=== PATIENT | male | born 2000 | race Caucasian/White ===

== ENCOUNTER 2018-04-24 14:11 | Emergency (ER) | payer BC ==
[~2018-04-24 14:11] MED LIST: CEPH500T7 PO
--- NOTE | 2018-04-24 14:23 | ER Report ---
History and Physical Time Seen By MD: 14:22 HPI/ROS CHIEF COMPLAINT: Overdose suicidal attempt HISTORY OF PRESENT ILLNESS: 17-year-old male history of depressive disorder on Xanax decided to kill himself today started drinking alcohol overnight and then took 71 mg Xanax tablets and attempt to kill himself was found by his family brought here for evaluation patient since she's had suicidal thoughts for quite some time but this is his 1st attempt been treated for depression since age is 14 patient has no physical complaints at this time REVIEW OF SYSTEMS: Respiratory: No cough, no dyspnea. Cardiovascular: No chest pain, no palpitations. Gastrointestinal: No vomiting, no abdominal pain. Musculoskeletal: No back pain. Remainder of the 14 system rev: Yes Allergies: Coded Allergies: No Known Drug Allergies (Unverified , 04/24/18) Home Meds Discontinued Scripts Cephalexin 500 Mg Tab (KEFLEX 500 MG TAB) 500 Mg Tablet, 500 MG PO Q6H for 5 Days, #20 TAB Prov:KINA UREÑA [employer] 03/01/17 Reviewed Nurses Notes: Yes Old Medical Records Reviewed: Yes Hx Substance Use Disorder: No Hx Alcohol Use: No Constitutional Vital Sign - Last 24 Hours 04/24/18 14:17 Temp 98.2 Pulse 63 Resp 16 B/P (MAP) 120/63 Pulse Ox 98 O2 Delivery Room Air Physical Exam General Appearance: The patient is alert, has no immediate need for airway protection and no current signs of toxicity. Somewhat somnolent Eyes: Pupils equal and round no injection dilated 4-5 mm Respiratory: Chest is non tender, lungs are clear to auscultation. Cardiac: regular rate and rhythm [ ] Gastrointestinal: Abdomen is soft and non tender, no masses, bowel sounds normal. Musculoskeletal: Neck: Neck is supple and non tender. Extremities have full range of motion and are non tender. Skin: No rashes or lesions. [ ] DIFFERENTIAL DIAGNOSIS: After history and physical exam differential diagnosis was considered for benzodiazepine overdose alcohol intoxication suicidal ideation with attempt Medical Decision Making Data Points Result Diagram: 04/24/18 1417 04/24/18 1417 Laboratory Hematology Test 04/24/18 14:17 Red Blood Count 5.85 M/uL (4.00-5.60) Mean Corpuscular Volume 85.5 fL (80.0-96.0) Mean Corpuscular Hemoglobin 30.0 pg (26.0-33.0) Mean Corpuscular Hemoglobin Concent 35.1 g/dL (32.0-36.0) Red Cell Distribution Width 12.9 % (11.5-14.5) Mean Platelet Volume 8.8 fL (7.2-11.1) Neutrophils (%) (Auto) 61.5 % (39.4-72.5) Lymphocytes (%) (Auto) 28.8 % (17.6-49.6) Monocytes (%) (Auto) 7.9 % (4.1-12.4) Eosinophils (%) (Auto) 1.5 % (0.4-6.7) Basophils (%) (Auto) 0.3 % (0.3-1.4) Nucleated RBC Relative Count (auto) 0.1 /100WBC Neutrophils # (Auto) 5.7 K/uL (2.0-7.4) Lymphocytes # (Auto) 2.7 K/uL (1.3-3.6) Monocytes # (Auto) 0.7 K/uL (0.3-1.0) Eosinophils # (Auto) 0.1 K/uL (0.0-0.5) Basophils # (Auto) 0.0 K/uL (0.0-0.1) Nucleated RBC Absolute Count (auto) 0.01 K/uL Sodium Level 142 mmol/L (137-145) Potassium Level 3.6 mmol/L (3.5-5.0) Chloride Level 107 mmol/L (98-107) Carbon Dioxide Level 23 mmol/L (22-30) Blood Urea Nitrogen 13 mg/dl (9-21) Creatinine 1.00 mg/dl (0.66-1.25) Glomerular Filtration Rate Calc > 60.0 Random Glucose 90 mg/dl (75-110) Calcium Level 9.3 mg/dl (8.4-10.2) Magnesium Level 1.9 mg/dl (1.7-2.2) Total Bilirubin 1.4 mg/dl (0.2-1.3) Aspartate Amino Transf (AST/SGOT) 23 U/L (0-35) Alanine Aminotransferase (ALT/SGPT) 23 U/L (0-56) Alkaline Phosphatase 101 U/L (0-126) Total Protein 8.1 g/dl (6.3-8.2) Albumin 4.7 g/dl (3.5-5.0) Thyroid Stimulating Hormone (TSH) 1.11 uIU/ml (0.46-4.68) Salicylates Level < 10 mg/L Salicylate Last Dose Date unk Acetaminophen Level < 10 ug/ml Serum Alcohol < 10 mg/dl Chemistry Test 04/24/18 14:17 White Blood Count 9.2 k/uL (4.5-11.0) Red Blood Count 5.85 M/uL (4.00-5.60) Hemoglobin 17.6 g/dL (14.0-18.0) Hematocrit 50.0 % (42.0-52.0) Mean Corpuscular Volume 85.5 fL (80.0-96.0) Mean Corpuscular Hemoglobin 30.0 pg (26.0-33.0) Mean Corpuscular Hemoglobin Concent 35.1 g/dL (32.0-36.0) Red Cell Distribution Width 12.9 % (11.5-14.5) Platelet Count 305 K/uL (150-450) Mean Platelet Volume 8.8 fL (7.2-11.1) Neutrophils (%) (Auto) 61.5 % (39.4-72.5) Lymphocytes (%) (Auto) 28.8 % (17.6-49.6) Monocytes (%) (Auto) 7.9 % (4.1-12.4) Eosinophils (%) (Auto) 1.5 % (0.4-6.7) Basophils (%) (Auto) 0.3 % (0.3-1.4) Nucleated RBC Relative Count (auto) 0.1 /100WBC Neutrophils # (Auto) 5.7 K/uL (2.0-7.4) Lymphocytes # (Auto) 2.7 K/uL (1.3-3.6) Monocytes # (Auto) 0.7 K/uL (0.3-1.0) Eosinophils # (Auto) 0.1 K/uL (0.0-0.5) Basophils # (Auto) 0.0 K/uL (0.0-0.1) Nucleated RBC Absolute Count (auto) 0.01 K/uL Glomerular Filtration Rate Calc > 60.0 Calcium Level 9.3 mg/dl (8.4-10.2) Magnesium Level 1.9 mg/dl (1.7-2.2) Total Bilirubin 1.4 mg/dl (0.2-1.3) Aspartate Amino Transf (AST/SGOT) 23 U/L (0-35) Alanine Aminotransferase (ALT/SGPT) 23 U/L (0-56) Alkaline Phosphatase 101 U/L (0-126) Total Protein 8.1 g/dl (6.3-8.2) Albumin 4.7 g/dl (3.5-5.0) Thyroid Stimulating Hormone (TSH) 1.11 uIU/ml (0.46-4.68) Salicylates Level < 10 mg/L Salicylate Last Dose Date unk Acetaminophen Level < 10 ug/ml Serum Alcohol < 10 mg/dl Toxicology Test 04/24/18 14:17 Salicylates Level < 10 mg/L Salicylate Last Dose Date unk Acetaminophen Level < 10 ug/ml Serum Alcohol < 10 mg/dl ED Course/Re-evaluation ED Course ED clinical course 17-year-old male who attempted suicide by taking 71 mg Xanax tablets patient has been depressed since he is 14 he has admitted alcohol and cannabis patient arrival here physically is is unremarkable exam patient has a normal EKG will be admitted as a voluntary admission to [facility] for suicidal ideation and attempt Decision to Disposition Date: Apr 24, 2018 Decision to Disposition Time: 15:36 Depart Departure Latest Vital Signs Vital Signs Date Time Temp Pulse Resp B/P (MAP) Pulse Ox O2 Delivery O2 Flow Rate FiO2 04/24/18 14:17 98.2 63 16 120/63 98 Room Air Impression: Primary Impression: Suicide attempt Condition: Improved Disposition: XFER TO [facility] CLIFFORD MORALEZ MD Apr 24, 2018 14:23
[2018-04-24 14:30] LABS: PLATELET COUNT, AUTOMATED 305 K/uL (150-450)
--- NOTE | 2018-04-24 14:35 | EKG ---
FACILITY: [facility] - [place] PATIENT NAME: JOSÉ MIGUEL DOUGLASS : [id number] MR: [id number] V: [id number] EXAM DATE: ORDERING PHYSICIAN: CLIFFORD MORALEZ TECHNOLOGIST: ОЛЬГА Bernal Reason : Blood Pressure : / mmHG Vent. Rate : 072 BPM Atrial Rate : 072 BPM P-R Int : 152 ms QRS Dur : 098 ms QT Int : 370 ms P-R-T Axes : 010 078 056 degrees QTc Int : 405 ms Normal sinus rhythm Normal ECG No previous ECGs available Confirmed by GALLO ALMONTE ([id number]) on 04/24/2018 3:21:01 PM Referred By: Confirmed By:GALLO ALMONTE
[2018-04-24 15:30] VITALS: BP 103/83
[2018-04-24] MEDS ORDERED: NICOTINE 21 MG/24 HR PATCH TD ONE (16:20)
[2018-04-25] MEDS ORDERED: ALPR-429 PO (11:15)
[2018-04-25] MEDS ORDERED: ALPR-451 PO (11:16)
== END 2018-04-24 16:20 ==
LOC: ER 14:16
DX: T42.4X2A Poisoning by benzodiazepines, intentional self-harm, initial encounter (principal); R45.851 Suicidal ideations; F32.9 Major depressive disorder, single episode, unspecified
CPT/HCPCS: 80305; 80320; 80329; 81001; 82040; 82247; 82310; 82374; 82435; 82565; 82947; 83735; 84075; 84132; 84155; 84295; 84443; 84450; 84460; 84520; 85025; 93005; 99283

== ENCOUNTER 2018-04-24 15:37 | Inpatient (IN) | payer BC ==
[~2018-04-24] VITALS: Ht 175.3 cm; Wt 68.0 kg
[2018-04-24] MEDS ORDERED: NICOTINE CARTRIDGE 1 EA PO PRN (16:25)
[2018-04-24 16:49] VITALS: BP 118/52
[2018-04-24 22:08] VITALS: BP 100/60
[2018-04-25 06:03] VITALS: BP 105/59
[2018-04-25 08:20] VITALS: BP 112/59
[2018-04-25] MEDS: NICOTINE INH SYSTEM 10 MG/INH INH PRN ×2 (08:35→20:19)
[2018-04-25] MEDS ORDERED: ALPR-429 PO (11:15)
[2018-04-25] MEDS ORDERED: ALPR-451 PO (11:16)
--- NOTE | 2018-04-25 16:22 | HISTORY AND PHYSICAL ---
DATE OF ADMISSION: April 24, 2018 Patient was seen at approximately 1100 hours on the a.m. of April 25, 2018. PRESENTING PROBLEM/CHIEF COMPLAINT Recent suicide attempt. HISTORY OF PRESENT ILLNESS This is a 17-year-old male who came to the emergency room on a voluntary basis after patient reported consuming seven 1 mg Xanax tablets, which he is prescribed to use for panic attack by his current outpatient provider. The patient reports drinking alcohol along with this in what patient describes as a suicide attempt. Patient initially very cooperative in the ER, however, on arrival to the Behavioral Health Unit, patient started engaging in cursing at hospital staff members and destroying hospital furniture. The patient put in a room where he could be monitored more closely. Behavior subsided, patient slept through the night and the next day the patient was apologetic for his behaviors, no longer combative. Patient cooperative. He reports again taking the Xanax and some alcohol in a suicide attempt. Patient has no previous suicide attempts. 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 He has also recently moved into a trailer house and is living with his best friend. Patient reports his energy is pretty low at times and his concentration is down. Patient reports he continues to have interest in skateboarding and other outdoor endeavors. Patient reports his sleep is performance at times, but melatonin seems to help. Patient no longer stating he is suicidal and now states his mood is a 5-6/10. Patient admitting to using marijuana on a very heavy basis daily. Notably his cannabis screen is negative and a repeat urine drug screen on the unit was negative for cannabis as well. Both were positive for benzodiazepines, which the patient admitted to overdosing on. Patient denies any history of abigail. Patient states that when he smokes too much marijuana at times he does get paranoid, and patient showing a bump on his arm that when he looks at this when he is smoking marijuana, reports he thinks this means he will "." Patient reports he does have panic attacks in the past. They are less now in frequency than they used to be. Patient has tried other medications including Lexapro and BuSpar. Patient reports stopping them. Patient denies any history of PTSD. Patient admits to mild phobic-like thoughts about dying. Denying any other symptoms of concern. Patient noted to be engaging in self-harm behaviors in the form of cutting from [age]. He no longer does this. Patient reports getting a aleman from the pain at the time, but not that it was a suicide attempt. MENTAL HEALTH HISTORY Patient has never been on an inpatient psychiatric unit before. Patient does continue to see Eden Beltran from time to time, who is currently only prescribing low dose for Xanax for abort of panic attacks. Patient used to see counselor Krystin, however, is not any more. FAMILY PSYCHIATRIC HISTORY Patient reports his mother suffers from depression and anxiety. A paternal grandmother may have suffered from alcoholism , and his father is a recovered alcoholic. Grandfather may have suffered from depression on the father's side as well. No suicides in the family history. PAST MEDICAL HISTORY Patient reports no concerns and denies any allergies and not on any medications for medical illness. SOCIAL HISTORY Patient born here in [place], raised in [place]. Parents were at the time of his . He has one sister who is older. Patient is not a high school graduate, did not obtain a GED. Patient reports he dropped out of high school around his tanmay year, went back and tried to finish, dropped out again. Patient reports initially this was caused by a relationship problem at the time with his significant other. Patient has never been in the and never , has no children. Considered himself heterosexual and has no current significant other. He lives with his best friend in a trailer that they just moved into. Patient works in a [employer] business. He reports overall he likes this work, and he has no history of physical, emotional or sexual abuse while growing up. LEGAL HISTORY The patient has a legal history significant for diversion program in the past when caught with marijuana. SUBSTANCE ABUSE HISTORY Patient reports using cannabis up to 3-4 times a day. He is a one pack a day cigarette smoker. He uses some minimal alcohol. Denies any history of other substance abuse. PHYSICAL EXAMINATION GENERAL: Please see emergency room note. Notable for a 17-year-old male who is now cooperative on the unit, interacting well. VITAL SIGNS: At the time of admission, temperature 98.2, pulse 63, respiratory rate 16, blood pressure 120/63 and pulse oximetry 98 on room air. LABORATORY DATA CBC unremarkable. CMP notable for a total bilirubin slightly elevated at 1.4. TSH 1.11. Urinalysis notable for small urine blood and some urobilinogen, otherwise unremarkable. Toxicology screen positive for benzodiazepine, negative for other drugs of abuse with a nondetectable serum alcohol. Repeat drug screen was also negative for cannabis, but positive for benzodiazepine. MENTAL STATUS EXAMINATION GENERAL APPEARANCE, BEHAVIOR AND ATTITUDE: This is a cooperative 17-year-old male making good eye contact. No bizarre mannerisms or tics. No periods of tearfulness. SPEECH: Within normal limits, regular rate, rhythm, volume and tone. MOOD: Described as variable at times. AFFECT: Minimally constricted. Mood congruent overall. THOUGHT PROCESSES: Patient goal directed, logical. Willing to take any marijuana use very seriously at this time. No loose associations or flight of ideas. THOUGHT CONTENT: Free of auditory or visual hallucinations, ideas of reference, thought broadcastings, delusions, obsessions, compulsions. Patient admitting to some paranoid-like thoughts concerning thoughts of wanting to when he is smoking heavy amounts of marijuana. Patient admitting to suicidal thoughts with recent attempt. Denying homicidal ideation. SENSORIUM: Clear. COGNITION: Alert and oriented to person, place, time and situation. MEMORY: Immediate, recent and remote estimated intact. INTELLIGENCE: Average based on interview. INSIGHT AND JUDGMENT: Considered grossly intact in the absence of substance abuse. ASSESSMENT This is a now cooperative 17-year-old male. Patient trying to excuse his somewhat violent and abusive behaviors the night before as he was quote "still high on Xanax." Will focus on heavy use of marijuana as a potential cause of mood instability. Will continue to review any symptoms in the absence of marijuana use. Patient now cooperative and remains on a voluntary basis. Will consider medications as needed. DIAGNOSES PER DSM-V Cannabis use disorder severe. 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 PLAN 1. Admit to the unit. 2. Necessary precautions to be implemented. 3. Patient will participate in individual and group therapy. 4. Medications to be administered, titrated accordingly. 5. Collateral information to be obtained as necessary. 6. Estimated length of stay three to five days. MTDD
[2018-04-25 23:07] VITALS: BP 98/70
--- NOTE | 2018-04-26 11:30 | BHS Progress Note ---
[facility] - Subjective Progress Notes Subjective Patient is noted to be taking an active role in his treatment today. Patient states he does not want to start medications, but will focus on abstaining from substance use. Patient's mood is improved, and sleep and appetite good. No other concerns, will see about possible discharge tomorrow. Suicidal Ideation: None Homicidal Ideation: None [facility] - Objective Physical Exam Vital Signs Vital Signs Date Time Temp Pulse Resp B/P (MAP) Pulse Ox O2 Delivery O2 Flow Rate FiO2 04/25/18 23:07 98.6 55 98/70 (79) Room Air 04/25/18 08:20 99 04/25/18 06:03 15 Hematology Test 04/25/18 00:00 Urine Opiates Screen Negative Urine Barbiturates Screen Negative Ur Tricyclic Antidepressants Screen Negative Urine Phencyclidine Screen Negative Urine Amphetamines Screen Negative Urine Benzodiazepines Screen Positive Urine Cocaine Screen Negative Urine Cannabinoids Screen Negative Chemistry Test 04/25/18 00:00 Urine Opiates Screen Negative Urine Barbiturates Screen Negative Ur Tricyclic Antidepressants Screen Negative Urine Phencyclidine Screen Negative Urine Amphetamines Screen Negative Urine Benzodiazepines Screen Positive Urine Cocaine Screen Negative Urine Cannabinoids Screen Negative Toxicology Test 04/25/18 00:00 Urine Opiates Screen Negative Urine Barbiturates Screen Negative Ur Tricyclic Antidepressants Screen Negative Urine Phencyclidine Screen Negative Urine Amphetamines Screen Negative Urine Benzodiazepines Screen Positive Urine Cocaine Screen Negative Urine Cannabinoids Screen Negative Muscle Strength and Tone: WNL Gait and Station: Steady [facility] Medications Reviewed: Side Effects, Benefits of Medication, Risks Allergies Reviewed: Yes Mental Status Exam General Appearance: Casual, Well Groomed, Good Eye Contact (fair), Cooperative, Polite, Good Interaction; No Unkept, No Tearful, No Psychomotor Agitation, No Psychomotor Retardation, No Bizarre Mannerisms, No Tics Speech: Clear, Spontaneous, Normal Rate, Normal Rhythm, Normal Volume, Normal Tone; No Delayed, No Slurred, No Garbled, No Rambling, No Inappropriate Mood: Dysthmic/Depressed (improving) Affect: Calm, Neutral; No Tearful, No Anxious, No Agitated Thought Process: Organized, Logical, Goal Directed; No Loose Associations, No Flight of Ideas Thought Content: No Suicidal Ideation, No Homicidal Ideation, No Delusions, No Auditory Halllucinations, No Visual Hallucinations, No Thought Broadcasting, No Ideas of Reference, No Obsessions, No Compulsions Sensorium: Clear Cognition: Alert & Oriented-Person, Alert & Oriented-Place, Alert & Oriented- Time, Clzle-Okfgjqca-Sypvfcjtz Memory: Immediate, Recent, Remote Intelligence: Average Insight Judgment: Fair (improving) [facility] Assessment and Plan [id number] Encounter Date: Apr 26, 2018 [id number] Encounter Time: 09:30 [facility] Plan: Necessary Precautions, Individual/Group Therapy, Admin/Titrate Meds, Educate Patient Tobacco Medications: Started Multpiple Antipsychotics Used: No Problems: (1) Cannabis-induced disorder Optional Permanent Comment: of mood, vs persisting depressive disorder Last Edited By: Christine Hall on Apr 26, 2018 11:29 Status: Acute (2) Cannabis use disorder, severe, in controlled environment Status: Chronic Condition 1. continue treatment. 2. likely discharge tomorrow. CHRISTINE HALL MD Apr 26, 2018 11:29
[2018-04-26 13:00] VITALS: BP 112/50
[2018-04-26 19:35] VITALS: BP 116/62
[2018-04-27 06:15] VITALS: BP 107/61
[2018-04-27] MEDS ORDERED: NIC10R INH (09:25)
--- NOTE | 2018-04-27 10:51 | BHS Progress Note ---
[facility] - Subjective Progress Notes Subjective "I'm getting the sober mindset." Verbalizes desire to quit use of cannabis and substances Rating anger 0, depression and anxiety 2/10 Denies urge for self harm, suicidal or homicidal ideation Suicidal Ideation: None Homicidal Ideation: None [facility] - Objective Physical Exam Vital Signs Vital Signs Date Time Temp Pulse Resp B/P (MAP) Pulse Ox O2 Delivery O2 Flow Rate FiO2 04/27/18 06:15 97.1 59 107/61 (76) 95 Room Air 04/26/18 13:00 16 Muscle Strength and Tone: WNL Gait and Station: Steady [facility] Medications Reviewed: Side Effects, Benefits of Medication, Risks Allergies Reviewed: Yes Mental Status Exam General Appearance: Casual, Well Groomed, Good Eye Contact (fair), Cooperative, Polite, Good Interaction; No Unkept, No Tearful, No Psychomotor Agitation, No Psychomotor Retardation, No Bizarre Mannerisms, No Tics Speech: Clear, Spontaneous, Normal Rate, Normal Rhythm, Normal Volume, Normal Tone; No Delayed, No Slurred, No Garbled, No Rambling, No Inappropriate Mood: No Dysthmic/Depressed (improving); Euthymic Affect: Calm, Neutral; No Tearful, No Anxious, No Agitated Thought Process: Organized, Logical, Goal Directed; No Loose Associations, No Flight of Ideas Thought Content: No Suicidal Ideation, No Homicidal Ideation, No Delusions, No Auditory Halllucinations, No Visual Hallucinations, No Thought Broadcasting, No Ideas of Reference, No Obsessions, No Compulsions Sensorium: Clear Cognition: Alert & Oriented-Person, Alert & Oriented-Place, Alert & Oriented- Time, Murol-Wncufzzy-Kuyapbznc Memory: Immediate, Recent, Remote Intelligence: Average Insight Judgment: Fair (improving) Microbiology Laboratory Tests 04/25/18 00:00: Urine Opiates Screen Negative, Urine Barbiturates Screen Negative, Ur Tricyclic Antidepressants Screen Negative, Urine Phencyclidine Screen Negative, Urine Amphetamines Screen Negative, Urine Benzodiazepines Screen Positive, Urine Cocaine Screen Negative, Urine Cannabinoids Screen Negative [facility] Assessment and Plan Bemj-[id number]-Fdla Encounter Date: Apr 27, 2018 [id number] Encounter Time: 10:48 [facility] Plan: Necessary Precautions, Individual/Group Therapy, Admin/Titrate Meds, Educate Patient Tobacco Medications: Started Multpiple Antipsychotics Used: No Problems: (1) Cannabis use disorder, severe, in controlled environment Status: Chronic (2) Cannabis-induced disorder Optional Permanent Comment: of mood, vs persisting depressive disorder Last Edited By: Carlos Callahan on Apr 26, 2018 11:29 Status: Resolved Condition Follow up @ [facility] Encourage to avoid use of etoh, substances Crisis line # provided, encourage use for worsening s/s, SI/HI Return to ER for worsening symptoms, SI/HI AMANDA GUERRERO NP Apr 27, 2018 10:51
--- NOTE | 2018-04-27 12:37 | DISCHARGE SUMMARY ---
DATE OF ADMISSION: April 24, 2018. DATE OF DISCHARGE: April 27, 2018 ATTENDING PROVIDER Loren Singh NP FINAL DIAGNOSES PER DSM-5 1. Cannibis use disorder - severe. 2. Cannibis induced mood disorder. 3. Rule out persistent depressive disorder. REASON FOR ADMISSION/BRIEF HISTORY The patient is a 17-year-old single, male that presented to the emergency room on a voluntary basis, reporting that he had consumed seven 1 mg Alprazolam tablets. The patient admits to drinking alcohol along with this in a suicide attempt. He was initially cooperative in the emergency room, although on arrival to the Behavioral Health Unit, the patient started engaging in cursing out hospital staff members and destroying hospital furniture. The patient was placed in a segregation room where he could be monitored more closely for his safety and the safety of others. This behavior subsided. The patient became more apologetic and engaged with his treatment throughout his stay, no longer combative. The patient reports again that he had taken Xanax along with some alcohol in a suicide attempt, no previous suicide attempts. The patient reported job related stressors and financial stressors. He reports his close support system and friend who he is living with also abuses cannabis regularly. The patient had been seen by Eden Beltran, outpatient medication provider. The patient had tried other medications in the past including Lexapro and BuSpar, although discontinued use. He denies symptoms of PTSD. He reported he does suffer from anxiety and has had panic episodes in the past. The patient denied any other psychiatric concerns and denied suicidal or homicidal ideation at the time of discharge. The patient was calm and cooperative with discharge interview, agreeable to ongoing outpatient individual therapy for substance abuse treatment. PHYSICAL EXAMINATION Please see emergency room notes for physical exam. VITAL SIGNS: At the time of admission included temperature 98.1, pulse of 51, respiratory rate 15, blood pressure 105/59, pulse oximetry 95% on room air. Vital signs at the time of discharge include temperature 97.1, pulse of 59, respiratory rate 16, blood pressure 107/61 pulse oximetry 95% on room air. LABORATORY DATA CBC within normal limits. RBC slightly elevated 5.85. Chemistry panel within normal limits, total bilirubin 1.4 slightly elevated. Thyroid stimulating hormone 1.11. Urine screen with 20 ketones, otherwise within normal limits. Toxicology includes salicylate and acetaminophen, serum alcohol level less than 10. Urine screen negative for opiates, barbiturates, tricyclics, phencyclidine, amphetamines, cocaine, and cannabinoids. Positive for benzodiazepines of which he is prescribed. MENTAL STATUS EXAMINATION GENERAL APPEARANCE, BEHAVIOR, AND ATTITUDE: Patient is calm and cooperative with team members at time of discharge interview. There is no psychomotor agitation or retardation. No bizarre mannerisms or tics. SPEECH: Regular rate, rhythm, volume, tone. MOOD: Euthymic. AFFECT: Minimally constricted, mood congruent. THOUGHT PROCESSES: Logical, goal directed. No loose associations or flight of ideas. THOUGHT CONTENT: Free of auditory or visual hallucinations, ideas of reference, thought broadcasting, delusions, obsessions, compulsions. Patient denying suicidal or homicidal ideations. SENSORIUM: Clear. COGNITION: Alert and oriented to person, place, time, and situation. MEMORY: Immediate, recent, and remote estimated intact. INTELLIGENCE: Average based on interview. INSIGHT AND JUDGMENT: Considered good as patient agreeable with attending AA meetings and also engaging with individual therapy with preestablished appointment prior to discharge. CONSULTATIONS None. TREATMENT Patient participated in individual and group therapy while on the unit. His behavior improved. He became cooperative and was apologetic for behaviors when initially arriving on the Behavioral Health Unit. The patient is agreeable with abstaining from cannabis and alcohol use. He is encouraged to attend individual therapy sessions for substance abuse treatment. This initial visit has been set with outpatient provider prior to his discharge. He is given the crisis line number and encouraged use for worsening symptoms and he agrees with return to the emergency room for worsening symptoms with suicidal or homicidal ideation. CONDITION OF PATIENT ON DISCHARGE Patient is stable, considered a minimal risk to himself or others. The patient is discharged to home. He is to follow up with [facility] for individual substance abuse therapy with preestablished appointment for Friday, April 27, 2018 at 1 p.m. He is given the crisis line number again and encouraged use for worsening symptoms. He is to return to the emergency room for suicidal or homicidal ideation or worsening symptoms. The patient is competent and agreeable with the above discharge plan. DISCHARGE MEDICATIONS Nicotrol cartridge and Nicotrol inhaler for nicotine replacement. The patient is again competent and agreeable with the above discharge as planned. [facility]
[2018-04-27 13:23] VITALS: BP 118/50
== END 2018-04-27 13:30 | disposition home or self-care (01) | DRG 918 ==
LOC: BHS 15:37
PROVIDERS: ADMIT Psychiatry & Neurology Psychiatry; ATTEND Psychiatry & Neurology Psychiatry
DX: T42.4X2A Poisoning by benzodiazepines, intentional self-harm, initial encounter (principal); R45.851 Suicidal ideations; F12.288 Cannabis dependence with other cannabis-induced disorder; T51.0X2A Toxic effect of ethanol, intentional self-harm, initial encounter; F17.210 Nicotine dependence, cigarettes, uncomplicated; F41.9 Anxiety disorder, unspecified; Z91.5 Personal history of self-harm; Z81.1 Family history of alcohol abuse and dependence; Z81.8 Family history of other mental and behavioral disorders
CPT/HCPCS: 80305